=== PATIENT | female | born 1940 | race Caucasian/White ===

== ENCOUNTER 2017-07-08 09:50 | Observation (INO) | payer OTHER ==
[2017-06-28 09:33] VITALS: BMI 27.0
--- NOTE | 2017-06-28 10:52 | DIAGNOSTIC IMAGING REPORT ---
CHEST 2 VIEWS ROUTINE HISTORY: 77 years-old Female pat preoperative exam. No acute chest complaints. COMPARISON: Chest radiographs 11/09/2015 TECHNIQUE: PA and lateral views of the chest FINDINGS: Cardiomediastinal and hilar silhouettes are within normal limits. No pneumothorax, pleural effusion, focal airspace consolidation or overt pulmonary edema. Bones of the chest appear grossly intact. There are degenerative changes of the shoulders and spine. IMPRESSION: No acute process. The above report was generated using voice recognition software. It may contain grammatical, syntax or spelling errors. Electronically signed by: Danny Laguna M.D. 06/28/2017 10:51 AM Dictated Date/Time: 06/28/2017 10:50 AM
[2017-06-28 11:22] LABS: BASO % 0.7 %; BASO ABS # 0.03 K/uL (0-0.2); EOS % 6.9 %; EOS ABS # 0.28 K/uL (0-0.5); HEMATOCRIT 38.6 % (37-47); HEMOGLOBIN 12.7 g/dL (12.0-16.0); IG# 0.01 K/uL (0.00-0.02); LYMPH % 22.3 %; LYMPH ABS # 0.91 K/uL (1.2-3.4); MEAN CELL VOLUME 86.2 fL (80-100); MEAN CORPUSCULAR HEMOGLOBIN 28.3 pg (25-34); MEAN CORPUSCULAR HGB CONC 32.9 g/dl (32-36); MEAN PLATELET VOLUME 10.4 fL (7.4-10.4); MONO % 8.6 %; MONO ABS # 0.35 K/uL (0.11-0.59); NEUT % 61.3 %; PLATELET COUNT 230 K/uL (130-400); RED CELL DISTRIBUTION WIDTH CV 14.8 % (11.5-14.5); RED CELL DISTRIBUTION WIDTH SD 46.6 fL (36.4-46.3); WHITE BLOOD COUNT 4.08 K/uL (4.8-10.8)
[2017-06-28 11:32] LABS: PTT PATIENT 26.1 SECONDS (21.0-31.0)
[2017-06-28 11:51] LABS: CALCIUM 8.5 mg/dl (8.5-10.1); CREATININE 0.82 mg/dl (0.60-1.20); POTASSIUM 3.8 mmol/L (3.5-5.1)
[~2017-07-08] VITALS: Ht 165.1 cm; Wt 74.8 kg
--- NOTE | 2017-07-08 07:20 | HISTORY & PHYSICAL EXAMINATION ---
DATE OF ADMISSION: 07/08/2017 Preop for a laminectomy L3-L4, L4-L5, possible spinal implants. HISTORY OF PRESENT ILLNESS: Samantha is a delightful, 77, profound claudication, associated weakness. Gabapentin helps her with pain but not with her weakness. She has no overall worrisome red flags of fevers, sweats, chills. Does not have bowel and bladder incontinence. She has increasing pain, weakness with extent with walking, alleviated by rest, classic neurogenic claudication. She has profound stenosis and severe critical stenosis, lumbar spine L3-L5. PAST MEDICAL HISTORY: Anxiety, arthritis, hypothyroid. SOCIAL HISTORY: Nonsmoker, non-[employer] user. Retired. ALLERGIES: Denied. REVIEW OF SYSTEMS: She denies any blurred vision, double vision, tinnitus, vertigo, loss of sensation or loss of sensorium. Denies any chest pain, palpitations, angina. No asthma, wheezing, shortness of breath. No bowel or bladder incontinence. No constipation. Her major complaint is musculoskeletal, neurological with back, lower extremity difficulty, neurogenic claudication without red flags. PHYSICAL EXAMINATION: GENERAL: She is alert, oriented at 77 years of age. VITAL SIGNS: Blood pressure 130/80, pulse 80, respirations 16. HEENT: Essentially normal. Pupils react to light and accommodation. CARDIAC: Normal S1, S2. Distant S3. No arrhythmia. LUNGS: Clear to auscultation. No rales, rhonchi, or wheezing. ABDOMEN: Soft, nontender. EXTREMITIES: Intact x4. She has slight edema. Slight varicosities. She has diminished reflexes in the Achilles. Slight weakness with dorsiflexion. Knee jerk reflexes 1/4. Adequate motor strength at quadriceps. No upper motor neuron issues. Facial nerves intact. IMAGES: Demonstrate severe stenosis, L3-L4 and L4-L5. PLAN: Includes lumbar surgery, decompression laminectomy L3-L4, L4-L5, possible implants.
[~2017-07-08 09:50] MED LIST: ACET-1311 PO; CEFAZOLIN 2000MG IV PUSH 15 ML IV SCH; CHOL200010 PO; GABA-113 PO; LACTATED RINGER'S 1000ML 1,000 ML IV SCH; LEVO88TA3 PO; NAPR-1168 PO; NSS 1000ML IV SCH; SCOPOLAMINE 1.5 MG TDSY TD SCH; SERT50TA PO
[2017-07-08 10:27] VITALS: BP 168/85; PULSE 65; TEMP 36.5; O2SAT 92; Ht 165.1 cm; Wt 74.8 kg
--- NOTE | 2017-07-08 13:06 | History & Physical Bridge Note ---
H&P Re-Evaluation Bridge Note: I have examined the patient, reviewed the History & Physical and in the interval since the performance of the History & Physical I have noted the following changes of clinical significance: No changes noted
[2017-07-08] MEDS ORDERED: FENTANYL CITRATE INJ 50 MCG/1 ML 2 ML VIAL ONE (15:36)
[2017-07-08] MEDS: CHECK SCOPOLAMINE PATCH PLACEMENT SCH ×2 (16:00→23:20)
[2017-07-08] MEDS ORDERED: GELATIN SPONGE SZ 100 ONE (16:10)
[2017-07-08] MEDS ORDERED: THROMBIN FOR SOLN 20000 UNIT KIT ONE (16:11)
[2017-07-08] MEDS ORDERED: VANCOMYCIN HCL 1000MG/20ML VIAL ONE (16:11)
[2017-07-08] MEDS ORDERED: BACITRACIN 50000 UNIT VIAL ONE (16:11)
[2017-07-08] MEDS ORDERED: BUPIVACAINE/EPINEPHRINE 0.5% MPF 1:200,000 30 ML VIAL ONE (16:12)
[2017-07-08] MEDS ORDERED: HYDROmorphone INJ 2 MG/ML SYR/VIAL ONE (16:59)
[2017-07-08] MEDS ORDERED: ONDANSETRON INJ 2 MG/ML 2 ML VIAL ONE (17:02)
[2017-07-08] MEDS ORDERED: LIDOCAINE HCL 2% 2 ML VIAL (20MG/ML) ONE (17:02)
[2017-07-08] MEDS ORDERED: RANITIDINE HCL 25 MG/ML INJ ONE (17:02)
[2017-07-08] MEDS ORDERED: PROPOFOL IV EMULSION 10 MG/ML 20 ML VIAL ONE ×2 (17:02→18:35)
[2017-07-08] MEDS ORDERED: GLYCOPYRROLATE INJ 0.2 MG/ML VIAL ONE (17:02)
[2017-07-08] MEDS ORDERED: ROCURONIUM BROMIDE 10 MG/ML 5 ML VIAL ONE (17:02)
[2017-07-08] MEDS ORDERED: NEOSTIGMINE METHYLSULFATE 5 MG/5 ML SYR ONE (17:02)
[2017-07-08] MEDS ORDERED: DEXAMETHASONE SOD INJ 4 MG/ML VIAL ONE (17:02)
[2017-07-08] MEDS ORDERED: DiphenhydrAMINE HCL 50 MG/ML VIAL ONE (17:02)
[2017-07-08] MEDS ORDERED: EpHEDrine SULFATE 50MG/5ML SYR ONE (17:06)
--- NOTE | 2017-07-08 18:39 | [facility] Post Operative Brief Note ---
Immediate Operative Summary Operative Date July 08, 2017. Pre-Operative Diagnosis Severe stenosis L3-L4 and L4-L5 Post-Operative Diagnosis Severe stenosis L3-S1 Procedure(s) Performed L3-S1 Laminectomy, L4-S1 Fusion without instrumentation Surgeon Dr. Og Nutrient Management Specialist Surgeon(s) Man Carlton PA-C Estimated Blood Loss 350cc Findings Consistent with Post-Op Diagnosis Specimens None Anesthesia Type General Complication(s) none Disposition Disposition: Recovery Room / PACU
[2017-07-08] MEDS ORDERED: SODIUM CHLORIDE 0.9% 1000ML 1,000 ML IV SCH (18:46)
[2017-07-08] MEDS ORDERED: METOCLOPRAMIDE HCL INJ 5 MG/ML 2 ML VIAL IV PRN (19:00)
[2017-07-08] MEDS ORDERED: LORAZEPAM INJ 1 MG in SYRINGE 0.5 ML IV PRN (19:00)
[2017-07-08] MEDS ORDERED: PROMETHAZINE HCL INJ 12.5 MG in SODIUM CHLORIDE 0.9% 50ML 50 ML IV PRN (19:00)
[2017-07-08] MEDS ORDERED: LORAZEPAM 1 MG TAB PO PRN (19:00)
[2017-07-08] MEDS ORDERED: MAGNESIUM HYDROXIDE SUSP 30 ML UDC PO PRN (19:00)
[2017-07-08] MEDS ORDERED: OXYCODONE HCL IR 5 MG TAB (IMMEDIATE RELEASE) PO PRN (19:00)
[2017-07-08] MEDS ORDERED: ONDANSETRON INJ 2 MG/ML 2 ML VIAL IV PRN (19:00)
[2017-07-08] MEDS ORDERED: HYDROmorphone INJ 2 MG/ML SYR/VIAL IV PRN ×2 (19:00)
[2017-07-08] MEDS ORDERED: ATROPINE SULFATE 0.1 MG/ML 5ML SYR IV PRN (19:15)
[2017-07-08] MEDS ORDERED: EpHEDrine SULFATE INJ 50 MG/ML AMP IV PRN (19:15)
--- NOTE | 2017-07-08 19:17 | Anesthesiology Progress Note ---
Anesthesia Post Op Note Date & Time July 08, 2017 at 19:16 Vital Signs Pain Intensity: 0 Vital Signs Past 12 Hours Date Time Temp Pulse Resp B/P (MAP) Pulse Ox O2 Delivery O2 Flow Rate FiO2 07/08/17 19:13 36.9 54 16 138/70 (99) 100 Nasal Cannula 2 07/08/17 19:10 138/70 07/08/17 19:07 58 15 07/08/17 19:07 58 15 99 07/08/17 19:06 56 12 07/08/17 19:06 66 12 100 07/08/17 19:05 141/71 07/08/17 19:01 56 21 100 07/08/17 19:01 58 21 07/08/17 19:00 141/65 07/08/17 18:56 57 11 100 07/08/17 18:56 57 11 07/08/17 18:55 138/72 07/08/17 18:51 36.3 68 16 142/75 (89) 100 Oxymask 10 07/08/17 18:51 91 13 142/75 100 07/08/17 18:51 62 13 07/08/17 10:27 36.5 65 20 168/85 (112) 92 Room Air Notes Mental Status: alert / awake / arousable, participated in evaluation Pt Amnestic to Procedure: Yes Nausea / Vomiting: adequately controlled Pain: adequately controlled Airway Patency, RR, SpO2: stable & adequate BP & HR: stable & adequate Hydration State: stable & adequate Anesthetic Complications: no major complications apparent
[2017-07-08 19:40] VITALS: BP 148/69; PULSE 58; TEMP 36.8; O2SAT 95
--- NOTE | 2017-07-08 20:13 | DIAGNOSTIC IMAGING REPORT ---
SPINE ONE VIEW, ANY LEVEL HISTORY: Back pain. FLUOROSCOPY TIME: 30 seconds. FINDINGS: Intraoperative fluoroscopy was provided for the lumbar spine. 1 fluoroscopic spot images were obtained. IMPRESSION: Fluoroscopy provided for a lumbar laminectomy/fusion.. The above report was generated using voice recognition software. It may contain grammatical, syntax or spelling errors. Electronically signed by: Hammad Maguire M.D. 07/08/2017 8:11 PM Dictated Date/Time: 07/08/2017 8:11 PM
[2017-07-08] MEDS ORDERED: IV FLUIDS COMPLETED PRN (20:15)
[2017-07-08 20:37] LABS: HEMATOCRIT 37.4 % (37-47); HEMOGLOBIN 12.2 g/dL (12.0-16.0)
[2017-07-08 20:40] VITALS: BP 134/67; PULSE 62; TEMP 36.4; O2SAT 100
[2017-07-08] MEDS: ACETAMINOPHEN IV 1,000 MG in EMPTY BAG 0 ML IV SCH (21:35)
[2017-07-08] MEDS: GABAPENTIN 300 MG CAP PO SCH (21:35)
[2017-07-08] MEDS: DEXAMETHASONE INJ 10 MG in SYRINGE 0 ML IV SCH (21:36)
[2017-07-08 21:40] VITALS: BP_SYST 115; BP_SYST 126; BP_DIAS 60; BP_DIAS 66; PULSE 59; PULSE 69; TEMP 36.4; O2SAT 100; O2SAT 98
[2017-07-08 22:39] VITALS: BP 107/65; PULSE 72; TEMP 36.4; O2SAT 99
[2017-07-08] MEDS ORDERED: NURSING VERBAL MED ORDER ONE (23:00)
[2017-07-08] MEDS: CEFAZOLIN IV 1,000 MG in SYRINGE 0 ML IV SCH (23:20)
[2017-07-09 03:31] VITALS: BP 113/70; PULSE 89; TEMP 36.4; O2SAT 97
[2017-07-09] MEDS: LEVOTHYROXINE 88 MCG TAB PO SCH (05:36)
[2017-07-09] MEDS: DEXAMETHASONE INJ 10 MG in SYRINGE 0 ML IV SCH ×3 (05:36→21:11)
[2017-07-09] MEDS: ACETAMINOPHEN IV 1,000 MG in EMPTY BAG 0 ML IV SCH ×3 (05:36→21:12)
[2017-07-09] MEDS ORDERED: BISACODYL 10 MG SUPP PR PRN (06:00)
[2017-07-09] MEDS ORDERED: BISACODYL 5 MG TABEC PO PRN (06:00)
[2017-07-09 07:47] VITALS: BP 116/67; PULSE 58; TEMP 36.4; O2SAT 97
--- NOTE | 2017-07-09 08:04 | OPERATIVE REPORT ---
DATE OF OPERATION: 07/08/2017 PREOPERATIVE DIAGNOSIS: Spinal stenosis, lumbar spine. Mild instability, lumbar spine. Stenosis from L3, L4, L5, and S1. PROCEDURES: 1. Lumbar spine laminectomy L3, L4, L5, and S1. 2. Foraminotomies. 3. Partial facetectomies. 4. Decompression of each and every nerve root. 5. Posterior lateral fusion 3, 4, and 5, lumbar spine without instrumentation. It was a posterior lateral bone fusion with autograft and bone mineral substitute. SURGEON: Jerome Og DO PEARLER: Man Carlton PA-C COMPLICATIONS: Zero. BLOOD LOSS: 350. ANESTHETIC: General. DESCRIPTION OF PROCEDURE: The patient was taken to the operating room and general intubated, anesthetic provided to the patient, placed prone, Braun catheter administered. Scrubbed her, prepped her, and draped sterile. We made skin incision from 2, 3 down to S1 dissecting soft tissue in the same plane, putting in deep self-retaining retractor. The bone was very thick, tremendous amount of arthritis, facet joint overgrowth, slight degenerative scoliosis. Using all techniques, I was able to decompress the neural elements using a josué, Kerrisons, curettes. I was pleased with the midline decompression. We then finished it off with foraminotomies. I was also careful, did not appear to the injury to the dura or injury to the nerve roots. We irrigated thoroughly with about 600 mL of fluid. I then bone grafted out of the facets and transverse processes from 3-5 to initiate the posterior lateral fusion. We then closed over drain in vancomycin powder with 1 Vicryl, 2-0 and staple gun. Sterile dressings applied. The patient returned to PACU stable. No apparent complications. Sponge and needle count correct. I attest to the content of the Intraoperative Record and any orders documented therein. Any exception s are noted below.
[2017-07-09] MEDS: CHECK SCOPOLAMINE PATCH PLACEMENT SCH ×3 (08:23→23:57)
[2017-07-09] MEDS: CEFAZOLIN IV 1,000 MG in SYRINGE 0 ML IV SCH ×2 (08:25→16:15)
[2017-07-09] MEDS: OXYCODONE HCL IR 5 MG TAB (IMMEDIATE RELEASE) PO PRN ×3 (08:25→13:02)
[2017-07-09] MEDS: SERTRALINE HCL 50 MG TAB PO SCH (08:26)
[2017-07-09] MEDS: CHOLECALCIFEROL 1000 INTER.UNIT TAB PO SCH (08:26)
[2017-07-09] MEDS: GABAPENTIN 300 MG CAP PO SCH ×3 (08:26→21:10)
[2017-07-09] MEDS: POLYETHYLENE (MIRALAX) 17 GM PACK PO SCH (08:26)
--- NOTE | 2017-07-09 10:09 | Anesthesiology Progress Note ---
Anesthesia Post Op Note Date & Time July 09, 2017 at 10:09 Vital Signs Pain Intensity: 4.0 Vital Signs Past 12 Hours Date Time Temp Pulse Resp B/P (MAP) Pulse Ox O2 Delivery O2 Flow Rate FiO2 07/09/17 07:47 36.4 58 17 116/67 (83) 97 Room Air 07/09/17 07:30 Room Air 07/09/17 03:31 36.4 89 15 113/70 (84) 97 Room Air 07/08/17 23:20 Nasal Cannula 2.0 07/08/17 22:39 36.4 72 18 107/65 (79) 99 Nasal Cannula 2.0 Notes Mental Status: alert / awake / arousable, participated in evaluation Pt Amnestic to Procedure: Yes Nausea / Vomiting: adequately controlled Pain: adequately controlled Airway Patency, RR, SpO2: stable & adequate BP & HR: stable & adequate Hydration State: stable & adequate Anesthetic Complications: no major complications apparent
[2017-07-09 11:04] VITALS: BP 118/66; PULSE 66; TEMP 36.7; O2SAT 97
[2017-07-09 15:23] VITALS: BP 112/69; PULSE 63; TEMP 36.7; O2SAT 95
[2017-07-09 23:50] VITALS: BP 115/63; PULSE 61; TEMP 36.6; O2SAT 92
[2017-07-10] MEDS: LEVOTHYROXINE 88 MCG TAB PO SCH (05:36)
[2017-07-10] MEDS: ACETAMINOPHEN IV 1,000 MG in EMPTY BAG 0 ML IV SCH ×2 (05:37→13:46)
[2017-07-10] MEDS: DEXAMETHASONE INJ 10 MG in SYRINGE 0 ML IV SCH (05:37)
[2017-07-10 07:02] VITALS: BP 133/81; PULSE 69; TEMP 36.5; O2SAT 95
[2017-07-10] MEDS: CHECK SCOPOLAMINE PATCH PLACEMENT SCH (07:26)
[2017-07-10] MEDS: OXYCODONE HCL IR 5 MG TAB (IMMEDIATE RELEASE) PO PRN ×2 (07:29→13:46)
[2017-07-10] MEDS: SERTRALINE HCL 50 MG TAB PO SCH (08:31)
[2017-07-10] MEDS: POLYETHYLENE (MIRALAX) 17 GM PACK PO SCH (08:31)
[2017-07-10] MEDS: GABAPENTIN 300 MG CAP PO SCH ×2 (08:31→13:46)
[2017-07-10] MEDS: CHOLECALCIFEROL 1000 INTER.UNIT TAB PO SCH (08:31)
[2017-07-10] MEDS ORDERED: OXYC-57 PO (08:57)
--- NOTE | 2017-07-10 08:59 | Discharge Instructions ---
Discharge Instructions Date of Service July 10, 2017. Admission Reason for Admission: Spinal Stenosis Discharge Discharge Diagnosis / Problem: same Discharge Goals Goal(s): Improve function Activity Recommendations Activity Limitations: as noted below Lifting Limitations: gradually increase as tolerated . Instructions / Follow-Up Instructions / Follow-Up MEDICATIONS: Please take your prescriptions as instructed at your pre-op appointment. SPECIAL CARE: The following information is intended to answer some of the common questions and concerns regarding your surgery. Each patient is an individual and receives individual counselling throughout the course of treatment, from diagnosis to surgery all the way through recovery. What follows is not an exhaustive list, but should be a useful guide to some of the common questions and concerns patients have regarding their surgeries. These are not provided to keep you from calling us; rather, they give you something accurate and concrete to reference as you recover from your procedure. If you need us, we are available to you. As always, if you are not sure about something, call us at [phone]. MEDICAL EMERGENCIES: For these conditions, call 911 or go to your local hospital-based Emergency Department - not [facility] or equivalent. * Paralysis * Severe chest pain or difficulty breathing * Swelling or redness of either leg Spine procedures can be rather complex and though complications are rare, they do occur. In such cases, effective advice regarding emergency situations cannot always be addressed over the telephone. You may be referred to the emergency department for more effective management of your problem. Activity Limitations: It is important to give your body time to heal, so please limit your activities : * In general, don't do anything that moves your spine too much. You should avoid contact sports, twisting or heavy lifting while you recover. * 5-10 pounds is all you should attempt to lift. * You should not plan on driving for approximately 3 weeks and you should avoid traveling more than 30-45 minutes at a time. Longer trips should be broken down with walking breaks spaced appropriately. * Physical therapy is not usually required. * Walking and good posture practices will help you recover and regain your function. * Avoid straining or sudden changes in position. * In general, the goal is to take it easy and recover. Don't cause any new problems. Just relax. Showers: * Do not take a bath, use a Jacuzzi or hot tub or otherwise submerge your incision. * It is usually safe to take a shower 4-5 days after your surgery. * Your incision does not require any special creams or ointments. * Simply clean it with soap and water, dry and re-dress with a clean bandage afterwards. Incision: * Keep incision clean, dry and protected until your first follow-up appointment. * Some amount of drainage and redness is normal. Any drainage should be fairly clear and not have a foul odor. * If you feel anything is wrong or you have excessive drainage, please call us. * Your stitches and rosie will be removed 10-14 days after your surgery. At the time of your first post-op visit. * Neck surgeries are typically closed with a suture underneath the skin. The steri-strips over the incision should be maintained until we see you in the office. Bracing: * You may be provided with a back or neck brace to encourage good posture and prevent injury. It will remind you not to do too much as you heal and will alert others to the fact that you have had a surgery. * Back braces may be removed for showers and when you are resting at home. They must be worn when you are walking around for any period of time or for travel. * For neck surgery, you will likely be provided with two cervical collars. The soft collar ([place] or foam rubber) is worn most commonly throughout the day and while sleeping. The plastic collar (provided at the hospital) is for showering/bathing. * Except while eating, collars should remain in place. More specifically, bracing is provided for a purpose and should be worn. * Please obtain your brace or collars prior to your operation and bring them to the hospital with you on the day of surgery. * You should also bring your collars to your post-op appointment with Dr. Og. You should always take good care of your body and practice healthy habits, especially following surgery. You should: * Follow your doctor's treatment plan * Sit and stand properly with good posture (ears over shoulders, shoulders over hips) Don't slouch * Learn to lift correctly * Exercise regularly (low-impact aerobic exercise is especially good, but check with your doctor first) * Generally, be up and walking for 5-10 minutes at a time at least 3-4 times per day from the day you get home * Increasing walking to tolerance until you can walk for 20-30 minutes at a time * Attain and maintain a healthy body weight * Eat healthy foods ( a well-balanced, low-fat diet rich in fruits and vegetables) and get enough calcium * Avoid excessive use of alcohol When to call our office - If you notice any of the following: * Increased pain not relieve by pain medicine * Fevers greater then 100 degrees F, chills or flu symptoms * Increased redness around incision * Drainage from the incision that is not clear * Any foul smelling drainage * Swelling or fluid collection beneath the skin Miscellaneous: * In the hospital, you may be given a walker or cane for support while walking. These are temporary needs and are intended to prevent injuries due to falls. You may discontinue them when you feel strong and steady enough on your feet. * Sleep in a comfortable position. We find that many patients find a lounge chair or recliner with several pillows to be beneficial in the early post-operative period. * The support stockings should be used for 7-10 days and may be discontinued when you are back to walking more and conducting usual household activities. No problem is insignificant. We are here to help you and get you well. Contact us at [phone]. Definitions: Foraminotomy: If part of the disc or a bone spur (osteophyte) is pressing on a nerve as it leaves the vertebra (through an exit called the foramen), a foraminotomy may be done. Otomy means "to make an opening." A foraminotomy is making the opening of the foramen larger, so the nerve can exit without being compressed. Laminotomy: Similar to the foraminotomy, a laminotomy makes a larger opening, this time in your bony plate protecting your spinal canal and spinal cord (the lamina). The lamina may be pressing on your nerve, so the surgeon may make more room for the nerves using a laminotomy. Laminectomy: Sometimes, a laminotomy is not sufficient. The surgeon may need to remove all or part of the lamina. This procedure is called a laminectomy. This can often be done at many levels without any harmful effects. Current Hospital Diet Patient's current hospital diet: Regular Diet Discharge Diet Recommended Diet: Regular Diet Procedures Procedures Performed: L3-S1 Laminectomy, L4-S1 Fusion without instrumentation Pending Studies Studies pending at discharge: no Medical Emergencies . Who to Call and When: Medical Emergencies: If at any time you feel your situation is an emergency, please call 911 immediately. . Non-Emergent Contact Non-Emergency issues call your: Primary Care Provider . "Provider Documentation" section prepared by Jerome Og. .
[2017-07-10 13:33] VITALS: BP 133/81; PULSE 69; TEMP 36.5; O2SAT 95
--- NOTE | 2017-07-17 14:57 | DISCHARGE SUMMARY ---
Марина is status post reconstructive spinal surgery. She is doing well. Discharged home in improved stable condition. She was alert, oriented, no chest pain, shortness of breath, no abdominal distention, some lower extremity difficulties. ASSESSMENT: Status post reconstructive spine surgery, lumbar spine. PLAN: We will discharge. She was discharged home in improved stable condition. Instructions given to her from the office. Instructions in the hospital. Walker wheel, medication and followup appointment all taken care of.
== END 2017-07-10 14:04 | disposition home or self-care (01) ==
LOC: C.ACU 09:50 → C.3E 18:50 → ENRESERV 19:02
PROVIDERS: ADMIT Orthopaedic Surgery Orthopaedic Surgery of the Spine; ATTEND Orthopaedic Surgery Orthopaedic Surgery of the Spine
DX: M48.07 Spinal stenosis, lumbosacral region (principal); K21.9 Gastro-esophageal reflux disease without esophagitis; Z88.5 Allergy status to narcotic agent; Z85.820 Personal history of malignant melanoma of skin; Z85.850 Personal history of malignant neoplasm of thyroid